=== PATIENT | female | born 1960 | race Caucasian/White ===

== ENCOUNTER 2016-06-15 11:06 | Day surgery (SDC) | payer OTHER ==
[2016-06-12 09:20] LABS: BASOPHILS 0.6 %; BASOPHILS ABSOLUTE 0.03 10/3/uL (0.0-0.16); EOSINOPHILS 3.2 %; EOSINOPHILS ABSOLUTE 0.16 10/3/uL (0.0-0.53); HEMATOCRIT 40.7 % (36.0-48.0); HEMOGLOBIN 13.8 g/dL (12.0-16.0); IMMATURE GRANULOCYTES 0.4 %; IMMATURE GRANULOCYTES ABSOLUTE 0.02 10/3/uL (0.0-0.11); LYMPHOCYTES 22.7 %; LYMPHOCYTES ABSOLUTE 1.14 10/3/uL (0.67-4.30); MEAN CORPUS HGB CONC 33.9 g/dL (32.0-36.0); MEAN CORPUSCULAR HEMOGLOB 31.9 pg (26.0-34.0); MEAN CORPUSCULAR VOLUME 94.2 fL (80-100); MEAN PLATELET VOLUME 9.3 fL (9.2-13.0); MONOCYTES 9.3 %; MONOCYTES ABSOLUTE 0.47 10/3/uL (0.21-1.20); NEUTROPHILS 63.8 %; NEUTROPHILS ABSOLUTE 3.21 10/3/uL (2.02-8.40); PLATELET COUNT 186 10/3/uL (150-400); RBC DISTRIBUTION WIDTH 13.1 % (12.0-16.0); RED CELL COUNT 4.32 10/6/uL (4.0-5.6)
[2016-06-12 09:22] LABS: MANUAL DIFF NO %
[2016-06-12 09:33] LABS: A/G RATIO 0.5 (0.7-1.9); ALBUMIN 3.2 G/DL (3.5-5.0); ALKALINE PHOSPHATASE 104 U/L (45-117); BUN (BLOOD UREA NITROGEN) 8 MG/DL (6-23); CALCIUM, SERUM 9.3 MG/DL (8.5-10.4); CHLORIDE, SERUM 100 MMOL/L (96-112); CO2 (CARBON DIOXIDE) 28 MMOL/L (24-34); CREATININE 0.59 MG/DL (0.55-1.02); GFR AFRICAN AMERICAN 120 ML/MIN (>=60); GFR NON AFRICAN AMERICAN 104 ML/MIN (>=60); GLUCOSE, SERUM 157 MG/DL (60-99); POTASSIUM, SERUM 4.1 MMOL/L (3.5-5.3); SGOT(AST) 36 U/L (5-40); SGPT(ALT) 45 U/L (5-65); SODIUM, SERUM 138 MMOL/L (135-148); TOTAL BILIRUBIN 0.3 MG/DL (0-1.2); TOTAL PROTEIN 9.2 G/DL (6.0-8.5)
--- NOTE | ~2016-06-15 | PREOPHP ---
PreOp History and Physical [id number] [place]. [address] NAME: NIKI EPREZ : 62 STATUS : PRE [facility] [place] PAT#: [id number] AGE: 55 ADM/REG DATE : MR#: [id number] REPORT SERV DATE: 06/15/16 DICTATED BY: IVAN HERNANDEZ III DATE: 06/09/16 REPORT STATUS : Draft TRANSCRIBED BY: MODL DATE: 06/09/16 HISTORY OF PRESENT ILLNESS: This 55-year-old female comes to the operating room for excisional biopsy of an enlarged right axillary lymph node. The patient has diffuse adenopathy. This is associated with some fever. The patient has had no weight loss. She has had no abdominal pain. She has had no nausea or vomiting. She recently had a right cervical lymph node biopsy which was of concern for, but not definitely diagnostic of lymphoma. Per her medical oncologist request, she comes now for resection of a very large right axillary lymph node to try to confirm the diagnosis of suspected lymphoma. ALLERGIES: NONE. MEDICATIONS: Folic acid, losartan, metformin, Otezla, and triamcinolone cream. PAST MEDICAL HISTORY: Includes arthritis and hypertension. 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 She has a history of tobacco abuse for 25 years. FAMILY HISTORY: Remarkable for breast cancer and hypertension. REVIEW OF SYSTEMS: The patient's 14-point review of systems is otherwise unremarkable. PHYSICAL EXAMINATION: GENERAL: This is a somewhat obese female, in no acute distress. She is alert and oriented x3. HEENT: Remarkable for diffuse cervical adenopathy. She has a well-healed incision over the right lateral neck. Supraclavicular areas unremarkable. In the right axilla, the patient has several large lymph nodes including a large lymph node which is fairly superficial about 3 cm in size. In the left axilla, she also has diffuse lymphadenopathy. LUNGS: Clear. CARDIAC: Exam normal. EXTREMITIES: Normal in all regions and remarkable for adenopathy. LABORATORY DATA: CT scan of the chest, abdomen, and pelvis shows adenopathy in the axillary regions as well as in the upper abdomen, hepatic steatosis. ASSESSMENT: A 55-year-old female with diffuse lymphadenopathy, of concern for a lymphoma with need for lymph node biopsy. PLAN: The patient comes to the operating room now for right axillary lymph node excisional biopsy. The procedure, risks, benefits, and alternatives, including but not limited to the risk for bleeding; infection; pain; swelling; scarring; deformity of the area; seroma formation; hematoma formation; nerve injury; chronic paresthesia or pain in the arm, shoulder, or axilla; nerve injury; muscle weakness or paralysis in the muscles of upper back or shoulder; chronic lymphedema of the arm; and unforeseen complications including deep venous thrombosis, pulmonary embolus, myocardial infarction, stroke, pneumonia, and PreOp History and Physical [address] [address] NAME: NIKI PEREZ : 62 STATUS : PRE [facility]#: [id number] AGE: 55 ADM/REG DATE : MR#: [id number] REPORT SERV DATE: 06/15/16 DICTATED BY: IVAN HERNANDEZ III DATE: 06/09/16 REPORT STATUS : Draft TRANSCRIBED BY: FELY DATE: 06/09/16 have been explained to the patient prior to surgery. Her questions have been answered. She clearly understands the risks and agrees to surgery as planned. ARNOLD/FELY Ivan Hernandez III, M.D. / [id number]
--- NOTE | ~2016-06-15 | OP ---
Record Of Operation [facility] [address] [place]. [address] NAME: NIKI PEREZ : 62 STATUS : [facility]#: [id number] AGE: 55 ADM/REG DATE : 06/15/16 MR#: [id number] REPORT SERV DATE: 06/15/16 DICTATED BY: IVAN HERNANDEZ III DATE: 06/15/16 REPORT STATUS : Draft TRANSCRIBED BY: MODL DATE: 06/15/16 DATE OF PROCEDURE: 06/15/2016 PREOPERATIVE DIAGNOSIS: Diffuse lymphadenopathy, concern for lymphoma. OPERATIVE DIAGNOSIS: Diffuse lymphadenopathy, concern for lymphoma. PROCEDURE: Excision of large deep right axillary lymph node. SURGEON: Ivan Hernandez M.D. ANESTHESIA: General with intubation. COMPLICATIONS: None. ESTIMATED BLOOD LOSS: Less than 5 mL. SPECIMENS: Right axillary lymph node. DRAINS: None. LAP AND SPONGE COUNT: Correct x3. BRIEF HISTORY: This 55-year-old female had a history of clinical and radiographic evidence for diffuse lymphadenopathy of concern for lymphoma. She had undergone a previous right cervical lymph node biopsy, which had been nondiagnostic. She had a very large right axillary lymph node and it was felt that excisional biopsy or resection of this lymph node was indicated for diagnostic purposes. This procedure, the risks, benefits, and alternatives, including but not limited to the risk for bleeding, infection, pain, swelling, scarring, deformity of the area, seroma formation, hematoma formation, nerve injury, chronic paresthesia, pain, numbness, neuralgia or neuroma of the involved extremity, nerve injuries with muscle weakness or paralysis in muscles of upper back or shoulder, chronic lymphedema of the arm, and unforeseen complications, including deep venous thrombosis, pulmonary embolus, myocardial infarction, stroke, pneumonia, and , were explained to the patient prior to surgery. Her questions were answered. She understood the risks and agreed to surgery as planned. PROCEDURE IN DETAIL: After being appropriately identified and after discussing risks of surgery with her again in the preoperative area, the patient was taken to the operating room and placed in supine position on the operating room table. General anesthesia was administered and she was intubated without difficulty. Her right arm was carefully placed on arm board. It was carefully and appropriately padded and protected. The right arm, chest, and axilla were prepped and draped sterilely in the usual fashion. After an appropriate "time-out" per [facility] standards, a small incision was made in the right axilla along the inferior axillary hairline, directly over the palpable lymph node. The incision was continued through the subcutaneous tissue. Hemostasis was controlled with cautery. The Record Of Operation [facility] [address] [facility] [place] [address] NAME: NIKI PEREZ : 62 STATUS : [facility] PAT#: [id number] AGE: 55 ADM/REG DATE : 06/15/16 MR#: [id number] REPORT SERV DATE: 06/15/16 DICTATED BY: IVAN HERNANDEZ III DATE: 06/15/16 REPORT STATUS : Draft TRANSCRIBED BY: FELY DATE: 06/15/16 dissection was continued deep into the axilla, where a very large lymph node was encountered. This was about 3 cm in size. Using sharp dissection, this lymph node was excised from the surrounding tissues. Several vessels going into were ligated and divided. The entire lymph node was removed and sent to pathology. The area was irrigated copiously with saline. Hemostasis was assured. The subcutaneous tissue was closed with running 3-0 Vicryl suture. The skin was closed with running subcuticular 4-0 Monocryl stitch. The incision was injected with 0.5% Marcaine. Dressings were applied. Anesthesia was reversed, and the patient was taken to the recovery room in stable condition. She tolerated the procedure well. Her family was informed of the results of surgery. The patient was discharged in stable and comfortable. Her family was advised that she should keep the wound clean and dry for 48 hours and she should not drive for three to four days after surgery or while using narcotics and that she should resume her usual medications. She has been asked to return in two weeks for followup or sooner if any fever, chills, wound drainage, or other problems prior to that time. She was given a prescription for Percocet 7.5 one t.i.d., #12, as needed for pain, which she was advised not to use while driving or with other narcotics. ARNOLD/FELY Ivan Hernandez III, M.D. / [id number] CC: Ephraim Ann III, JENNY Bertrand Marquess Anz III, M.D.
[~2016-06-15 11:06] MED LIST: FOLIC PO; GLUCOPHAGE1000 MG PO; HYZAAR1 TAB PO; KENCR.1 TOP; OTEZLA PO
== END 2016-06-15 16:29 | disposition home or self-care (01) ==
LOC: SDC 11:06
PROVIDERS: Surgery
PROC: 07B50ZZ Excision of Right Axillary Lymphatic, Open Approach (ICD-10-PCS; principal; 2016-06-15 12:45)
DX: R59.9 Enlarged lymph nodes, unspecified (principal); E11.9 Type 2 diabetes mellitus without complications; G47.33 Obstructive sleep apnea (adult) (pediatric); I10 Essential (primary) hypertension; L40.9 Psoriasis, unspecified; Z99.89 Dependence on other enabling machines and devices; Z79.84 Long term (current) use of oral hypoglycemic drugs; Z79.899 Other long term (current) drug therapy
CPT/HCPCS: 71020; 80053; 82962; 85025; 88307; 88313; 88333; 88341; 88342; 88346; 93005; A9270-GY; J0690; J1885; J2250; J2405; J3010